=== PATIENT | female | born 1955 | race Caucasian/White ===

== ENCOUNTER 2023-05-01 14:11 | Outpatient (OUT) | payer MEDICARE, SELFPAY ==
[2023-05-01 14:52] LABS: Basophils Percent Auto 0.4 % (0.2-2.0); Eosinophils Absolute Auto 0.2 10^3/uL (0.0-0.7); Eosinophils Percent Auto 1.7 % (0.9-7.0); Hematocrit 41.4 % (36.0-48.0); Hemoglobin 13.1 g/dL (12.0-16.0); Immature Granulocytes Abs Auto 0.03 10^3/uL (0.00-0.03); Immature Granulocytes Pct Auto 0.3 % (0.0-0.5); Lymphocytes Absolute Auto 0.7 10^3/uL (1.2-3.8); Lymphocytes Percent Auto 6.4 % (20.5-60.0); Mean Corpuscular HGB Conc 31.6 g/dL (29.9-35.2); Mean Corpuscular Hemoglobin 28.9 pg (26.7-34.0); Mean Corpuscular Volume 91.2 fL (81.0-99.0); Mean Platelet Volume 10.2 fL (9.5-13.5); Monocytes Absolute Auto 0.8 10^3/uL (0.3-0.8); Monocytes Percent Auto 7.3 % (1.7-12.0); Neutrophils Absolute Auto 8.6 10^3/uL (1.4-6.5); Neutrophils Percent Auto 83.9 % (43.0-75.0); Platelet Count 254 10^3/uL (150-450); Red Blood Count 4.54 10^6/uL (4.20-5.40); Red Cell Distribution Width 12.3 % (11.0-15.0); White Blood Count 10.3 10^3/uL (4.0-11.0)
[2023-05-01 15:01] LABS: Estimated Average Glucose 148 mg/dL; Glycohemoglobin A1C 6.8 % (4.5-6.2)
[2023-05-01 15:11] LABS: Alanine Aminotransferase 31 U/L (14-59); Albumin Globulin Ratio 0.9; Albumin Level 3.8 g/dL (3.4-5.0); Alkaline Phosphatase 73 U/L (46-116); Anion Gap 13.3; Aspartate Amino Transferase 26 U/L (15-37); BUN Creatinine Ratio 19.4; Bilirubin Total 0.6 mg/dL (0.2-1.0); Calcium 9.3 mg/dL (8.5-10.1); Carbon Dioxide 29.8 mmol/L (21.0-32.0); Chloride 98 mmol/L (98-107); Chol HDL Ratio 3.1; Cholesterol 202 mg/dL (<=200); Estimated GFR (African America >60 (>=60); Estimated GFR (Non-African Ame 53 (>=60); Globulin 4.3 g/dL; Glucose 111 mg/dL (74-106); HDL Cholesterol 65 mg/dL (40-60); Potassium 4.1 mmol/L (3.5-5.1); Sodium 137 mmol/L (136-145); TSH W/ REFLEX FT4 0.828 uIU/mL (0.358-3.740); Total Protein 8.1 g/dL (6.4-8.2); Triglycerides 354 mg/dL (<=150); VLDL CHOLESTEROL 70.8 mg/dL
[2023-05-02 07:08] LABS: HCV Ab Non Reactive (Non Reactive)
== END 2023-05-01 14:12 | disposition home or self-care (01) ==
LOC: LAB 14:18
PROVIDERS: PCP Internal Medicine; Visit Provider Physician Assistant
DX: Z00.00 Encounter for general adult medical examination without abnormal findings (principal); I25.10 Atherosclerotic heart disease of native coronary artery without angina pectoris; I10 Essential (primary) hypertension; K29.71 Gastritis, unspecified, with bleeding; E11.9 Type 2 diabetes mellitus without complications; Z83.49 Family history of other endocrine, nutritional and metabolic diseases; Z72.89 Other problems related to lifestyle
CPT/HCPCS: 36415; 80053; 80061; 83036; 84443; 85025; 87522

== ENCOUNTER 2023-09-21 06:42 | Day surgery (SDC) | payer MEDICARE, SELFPAY ==
--- NOTE | 2023-09-20 | HP_ITS ---
PREOPERATIVE HISTORY AND PHYSICAL Date:? 09/20/2023 HISTORY:? Patient is a 68-year-old white female with complaints of declining vision from her left eye.? Her general onset of this has occurred over the last 1-2 years.? She states it has been constant in nature, gradually worsening over that time frame.? She has difficulty watching TV or working on the computer.? She also states having significant difficulty with road signs and headlights creating glare.? PAST OCULAR HISTORY:? Dry eyes. PAST SURGICAL HISTORY:? Denies. SOCIAL HISTORY:? Denies tobacco, alcohol or recreational drug abuse.? SYSTEMIC MEDICATIONS:? Include metoprolol, atorvastatin, lisinopril, hydrochlorothiazide, pantoprazole, ezetimibe, 81 mg aspirin, cetirizine. ALLERGIES:? Denies. REVIEW OF SYSTEMS:? No pertinent positives. PHYSICAL EXAM:? GENERAL:? In general, she is awake, alert and oriented x3, well developed, well nourished, in no acute distress.? HEART:? Regular rate and rhythm. LUNGS:? Clear bilaterally. ABDOMEN:? Soft, non-tender, non-distended. EXTREMITIES:? No pitting edema. OPHTHALMIC EXAM:? Revealed a visual acuity of 20/70 in the left and 20/30 in the right that glared to 20/200 in the right and 20/400 in the left.? Pupils motility, muscle balance, confrontational visual de la cruz within normal limits bilaterally.? Pressures were measured at 18 and 19, right and left eye respectively.? Slit lamp exam revealed blepharitis with a severe decrease in tear film bilaterally.? Conjunctiva, cornea, anterior chamber and iris were within normal limits bilaterally.? Lens status demonstrated 2+ nuclear sclerosis with 2+ cortical changes bilaterally.? FUNDUS EXAM:? Revealed a good view with good dilation bilaterally.? Optic discs, vessels, periphery and vitreous were within normal limits bilaterally.? Macula demonstrated < > changes and clumping bilaterally.? ASSESSMENT AND PLAN:? Visually significant cataract, left eye.? After risks, benefits, alternatives, as well as expectations were delivered to the patient, she elected to go forward with cataract removal.? She understands the risks include but not limited to infection, bleeding, loss of vision, loss of the eye itself.? Secondly, she understands postoperatively she is likely to require spectacle correction for best visual acuity.? Finally, a complete ophthalmic exam was performed, there is not determined to be any other source of visual decline other than that of the cataract.? After understanding all the risks as well as expectations, she elected to go forward with procedure as listed above and will be doing so in the near future. JOSE LUIS
--- NOTE | 2023-09-21 | OP_ITS ---
OPERATION DATE: 09/21/2023 SURGEON: Niko Ritchie M.D. PREOPERATIVE DIAGNOSIS: Nuclear sclerotic cataract left eye. POSTOPERATIVE DIAGNOSIS: Nuclear sclerotic cataract left eye. PROCEDURE: Cataract extraction with intraocular lens placement for the left eye. ANESTHESIA: Topical ESTIMATED BLOOD LOSS: Zero. COMPLICATIONS: None. PROCEDURE: In the preoperative holding area, topical proparacaine was placed on the surface of the patient?s eye, and the patient was sat up in an upright position. The 6 o?clock limbus was then marked with a marking pen for future reference for the Toric lens that would be placed into her eye. The patient was then brought to the Operating Room in supine position. After proper identification, the left eye was prepped and draped in a sterile ophthalmic fashion. A paracentesis was created at the 5 o'clock position. Approximately 1 cc of unpreserved Xylocaine was injected into the anterior chamber followed by Amvisc Plus. Using a 2.6 mm Keratome blade, a clear corneal incision was created at the 2 o'clock limbus. A cystotome was then used to begin a curvilinear capsulorrhexis that was continued for 360 degrees with the Utrata forceps. BSS on a 26 gauge cannula was injected beneath the anterior capsule to hydrodissect as well as hydrodelineate the lens. After ensuring mobility, phacoemulsification was performed in a [id number]-type fashion. After all nuclear material had been removed from the eye, IA was introduced and all residual cortical material was cleaned up. Additional Amvisc Plus was injected into the posterior bag to pressurize and inflate the anterior chamber. Referencing the 6 o?clock limbal dieudonne, the 99 degree axis was identified and marked with a [employer] Toric Marking System. A lens was then inserted into the anterior chamber and partially into the bag. This lens was then discovered to be the incorrect power and, therefore, removed from the eye. This took place with further inflating the anterior chamber with Amvisc Plus and grasping the lens with MST anterior chamber forceps through the paracentesis site, and MST IOL scissors the lens was then cut into thirds and removed through the temporal wound without difficulty. Further Amvisc Plus was injected into the anterior chamber, for once again adequate inflation, and a lens model SA6AT5, 30.0 diopters was then injected and dialed approximately 10 degrees shy of the 99 degree axis. IA was re-introduced into the anterior chamber, and all residual Amvisc Plus was removed from the eye. Utilizing the tip of the IA, the lens was rotated the final 10 degrees to the 99 degree axis. BSS on a 30 gauge cannula was injected into the stroma of both the clear corneal incision as well as the paracentesis to hydrate the wounds. Additional BSS was injected into the anterior chamber to pressurize the eye at approximately 20 to 22 mmHg by finger tension. 0.1 cc of antibiotic was injected into the anterior chamber and Weck- Ewelina sponges were used to check the wounds to be watertight. One drop of Apraclonidine and one drop of prednisolone acetate were placed into the eye and a shield was placed over top. The patient was then sent to the postoperative area in satisfactory condition to follow up the following day for postoperative care. JOSE LUIS
[2023-09-21] MEDS: DIAZEPAM 5 MG TABLET PO (07:07)
[2023-09-21] MEDS: TROPICAMIDE 1% OP SOL 300 DROP/15 ML BOTTLE OP ×4 (07:09→07:28)
[2023-09-21] MEDS: BESIFLOXACIN HCL 100 DROP DROPS.SUSP OP ×4 (07:10→07:29)
[2023-09-21] MEDS: PHENYLEPHRINE HCL 2.5% OP SOL 40 DROP/2 ML BOTTLE OP ×4 (07:11→07:27)
[2023-09-21] MEDS: CYCLOPENTOLATE HCL 1% OP SOL 40 DROP/2 ML BOTTLE OP ×4 (07:11→07:28)
[2023-09-21 07:14] VITALS: BP 141/85; PULSE 63; TEMP 36.1; O2SAT 97
[2023-09-21] MEDS: PROPARACAINE HCL 0.5% 300 DROP/15 ML BOTTLE OP (07:58)
[2023-09-21 08:08] VITALS: BP 150/79; PULSE 57; O2SAT 98
[2023-09-21 08:13] VITALS: BP 161/82; PULSE 58; O2SAT 98
[2023-09-21] MEDS: HYALURONATE SODIUM 16 MG/ML SYRINGE OP (08:14)
[2023-09-21] MEDS: LIDOCAINE 2% JELLY 10 ML TOPICAL (08:14)
[2023-09-21] MEDS: APRACLONIDINE HCL 0.5% SOL 100 DROP/5 ML BOTTLE OP (08:14)
[2023-09-21] MEDS: LIDOCAINE HCL 1% PF 20 MG/2 ML VIAL INJ (08:15)
[2023-09-21] MEDS: BETADINE POVIDONE-IODINE 5% OP SOL 30 ML BOTTLE OP (08:15)
[2023-09-21] MEDS: PHENYLEPHRINE/KETOROLAC 1-0.3% ML VIAL 4 ML IRR (08:15)
[2023-09-21] MEDS: PREDNISOLONE ACETATE OP 1% SUSP 100 DROPS/5 ML 1 DROP OP (08:15)
[2023-09-21] MEDS: TETRACAINE HCL 0.5% OP SOL 80 DROP/4 ML BOTTLE OP (08:16)
[2023-09-21] MEDS: CEFUROXIME SODIUM 750 MG, 0.9 % SODIUM CHLORIDE 16.3 ML OP (08:16)
[2023-09-21] MEDS: HYALURONATE SODIUM 16 MG/ML SYRINGE EYE-LEFT (08:25)
== END 2023-09-21 08:42 | disposition home or self-care (01) ==
LOC: SURGOUT 06:43
PROVIDERS: PCP Internal Medicine; Visit Provider Ophthalmology
PROC: (CPT 66984; principal; 2023-09-21 07:55)
DX: H25.12 Age-related nuclear cataract, left eye (principal)
CPT/HCPCS: 66984; J0697; V2630

== ENCOUNTER 2023-09-21 07:34 | Outpatient (OUT) | payer MEDICARE, SELFPAY | END 2023-09-21 07:35 | disposition home or self-care (01) | LOC: PST 07:34 | PROVIDERS: PCP Internal Medicine; Visit Provider Ophthalmology | DX: Z01.818 Encounter for other preprocedural examination (principal); H25.12 Age-related nuclear cataract, left eye ==

== ENCOUNTER 2023-10-19 06:55 | Day surgery (SDC) | payer MEDICARE, SELFPAY ==
--- NOTE | 2023-10-19 | HP_ITS ---
PREOPERATIVE HISTORY AND PHYSICAL ? Date:? 10/18/2023 ? HISTORY:? The patient is a 68-year-old white female with complaints of declining vision out of her right eye.? She states that gradually, over approximately one year?s time, she has noticed a constant decline in vision.? She describes it as moderate in severity.? She is having difficulty watching TV and doing computer work.? She also states having difficulty at night time with headlights creating glare and halos.? ? PAST OCULAR HISTORY / PAST MEDICAL HISTORY / SOCIAL HISTORY / MEDICATIONS / ALLERGIES TO MEDICATIONS / REVIEW OF SYSTEMS / PHYSICAL EXAM:? Unchanged from previously dictated. ? ASSESSMENT / PLAN:? Visually significant cataract right eye.? After risks, benefits, alternatives, as well as expectations were delivered to the patient, she elected to go forward with cataract removal.? She understands the risks include but not limited to infection, bleeding, loss of vision, loss of the eye itself.? Secondly, she understands that postoperatively she is likely to require spectacle correction for her best visual acuity.? Finally, a complete ophthalmic exam was performed.? There is not determined to be any other source of visual decline other than that of the cataract. ? After understanding all risks as well as expectations, she elected to go forward with the procedure as listed above and will be doing so in the near future. JOSE LUIS
--- NOTE | 2023-10-19 | OP_ITS ---
OPERATION DATE: 10/19/2023 SURGEON: Niko Ritchie M.D. PREOPERATIVE DIAGNOSIS: Nuclear sclerotic cataract right eye. POSTOPERATIVE DIAGNOSIS: Nuclear sclerotic cataract right eye. PROCEDURE NAME: Cataract extraction with intraocular lens placement for the right eye. ANESTHESIA: Topical. ESTIMATED BLOOD LOSS: Zero. COMPLICATIONS: None. PROCEDURE: In the preoperative holding area, topical proparacaine was placed on the surface of the patient?s eye and she was sat up in an upright position. The 6 o?clock limbus was marked with a marking pen for future reference for the Toric lens. Patient was brought to the Operating Room in supine position. After proper identification, the right eye was prepped and draped in a sterile ophthalmic fashion. A paracentesis was created at the 11 o'clock position. Approximately 1 cc of unpreserved Xylocaine was injected into the anterior chamber followed by Amvisc Plus. Using a 2.6 mm Keratome blade, a clear corneal incision was created at the 8 o'clock limbus. A cystotome was then used to begin a curvilinear capsulorrhexis that was continued for 360 degrees with the Utrata forceps. BSS on a 26 gauge cannula was injected beneath the anterior capsule to hydrodissect as well as hydrodelineate the lens. After ensuring mobility, phacoemulsification was performed in a [id number]-type fashion. After all nuclear material had been removed from the eye, IA was introduced and all residual cortical material was cleaned up. Additional Amvisc Plus was injected into the posterior bag to further pressurize and inflate it. Referencing the 6 o?clock limbal dieudonne, the 70 degree axis was discovered with the [employer] marking system. A lens model SA6AT5, 28.0 diopters was injected and dialed approximately 10 degrees shy of the 70 degree markings. IA was reintroduced into the anterior chamber and all residual Amvisc Plus was removed from the eye. Utilizing the tip of the IA, the lens was rotated the final 10 degrees to the 70 degree axis. BSS on a 30 gauge cannula was injected into the stroma of both the clear corneal incision as well as the paracentesis to hydrate the wounds. Additional BSS was injected into the anterior chamber to pressurize the eye at approximately 20 to 22 mmHg by finger tension. 0.1 cc of antibiotic was injected into the anterior chamber. Weck-Ewelina sponges were used to check the wounds to be watertight. One drop of Apraclonidine and one drop of prednisolone acetate were placed into the eye and a shield was placed over top. The patient was then sent to the postoperative area in satisfactory condition to follow up the following day for postoperative care. JOSE LUIS
--- OUTSIDE RECORDS SUMMARY | 2023-10-19 06:58 | XMS_ITS | CCD ---
Author Organization [facility] Care Team Providers Care Secretary Board Of Commissioners Name Role Phone None, No PCP Unavailable Unavailable Unavailable Unavailable Jeet Pretty Unavailable Unavailable Unavailable Grisel VIRK, Dr. Maverick Rosario Referring Unavailable Sukhwinder VIRK, Dr. Jeet Valero Primary Care [place] vailable Grisel VIRK, Dr. Maverick Rosario Attending Unavailable Grisel VIRK, Dr. Maverick Rosario Attending Unavailable Grisel VIRK, Dr. Maverick Rosario Referring Unavailable Grisel VIRK, Dr. Maverick Rosario Attending Unavailable Jeet Pretty MD Primary Care Provider MAVERICK ESPINOSA Attending Unavailable JEET PRETTY Primary Care Unavailable VERONICA SHERMAN Attending Unavailable JOE ADLER Attending Unavailable ANA WILL Referring Unavailable Medications Current Medications Medication Drug Class(es) Dates Sig (Normalized) Sig (Original) aspirin 81 mg delayed release oral tablet (5 sources) Platelet Aggregation Inhibitor, Nonsteroidal Anti-inflammatory Drug take 1 tablet by mouth once daily aspirin 81 mg EC tablet Take 1 tablet (81 mg) by mouth once daily. 0 Active atorvastatin 80 mg oral tablet (6 sources) HMG-CoA Reductase Inhibitor Start: 06-05-2023 End: 06-04-2024 take 1 tablet by mouth once daily at bedtime atorvastatin (Lipitor) 80 mg tablet Indications: Mixed hyperlipidemia Take 1 tablet (80 mg) by mouth once daily at bedtime. 90 tablet 3 06/05/2023 06/04/2024 Active calcium carbonate 1250 mg oral tablet (5 sources) take 1 tablet by mouth twice daily calcium carbonate (Oscal) 500 mg calcium (1,250 mg) tablet Take 1 tablet (1,250 mg) by mouth 2 times a day. 0 Active take 1 tablet by mouth twice ly Oyster Shell Calcium 500 MG Oral Tablet take 1 tablet by mouth 2 times daily Quantity: 0 Refills: 0 Ordered: 22-Oct-2021 DO Active cetirizine hydrochloride 10 mg oral tablet (1 source) Histamine-1 Receptor Antagonist take 1 tablet by mouth once daily cetirizine (ZyrTEC) 10 mg tablet Take 1 tablet (10 mg) by mouth once daily. 0 Active ezetimibe 10 mg oral tablet (5 sources) Dietary Cholesterol Absorption Inhibitor Start: 2021 End: 2024 take 1 tablet by mouth once daily ezetimibe (Zetia) 10 mg tablet Indications: Mixed hyperlipidemia Take 1 tablet (10 mg) by mouth once daily. 90 tablet 3 06/05/2023 06/04/2024 Active ferrous sulfate 324 mg delayed release oral tablet (5 sources) End: 2023 take 1 tablet by mouth once daily ferrous sulfate 324 mg (65 mg elemental iron) EC tablet (delayed release) Take 1 tablet (65 mg) by mouth once daily. 0 06/05/2023 Discontinued (Therapy completed) fexofenadine hydrochloride 180 mg oral tablet (5 sources) Histamine-1 Receptor Antagonist End: 2023 take 1 tablet by mouth once daily fexofenadine (Jessica) 180 mg tablet Take 1 tablet (180 mg) by mouth once daily. 0 06/05/2023 Discontinued (Discontinued by another clinician) hydroCHLOROthiazide 25 mg oral tablet (6 sources) Thiazide Diuretic Start: 2023 End: 2024 take 1 tablet by mouth once daily hydroCHLOROthiazide (HYDRODiuril) 25 mg tablet Indications: Coronary artery disease involving [place] coronary artery of [place] heart without angina pectoris , S/P CABG (coronary artery bypass graft) , Mixed hyperlipidemia , History of aortic valve replacement with bioprosthetic valve Take 1 tablet (25 mg) by mouth once daily. 90 tablet 3 06/05/2023 06/04/2024 Active lisinopril 20 mg oral tablet (6 sources) Angiotensin Converting Enzyme Inhibitor Start: 2023 End: 2024 take 1 tablet by mouth twice daily lisinopril 20 mg tablet Indications: Coronary artery disease involving [place] coronary artery of [place] heart without angina pectoris , S/P CABG (coronary artery bypass graft) , History of aortic valve replacement with bioprosthetic valve Take 1 tablet (20 mg) by mouth 2 times a day. 180 tablet 3 06/05/2023 06/04/2024 Active metoprolol tartrate 25 mg oral tablet (6 sources) beta-Adrenergic Reuben Start: 2023 End: 2024 take 1 tablet by mouth twice daily metoprolol tartrate (Lopressor) 25 mg tablet Indications: Coronary artery disease involving [place] coronary artery of [place] heart without angina pectoris , S/P CABG (coronary artery bypass graft) , History of aortic valve replacement with bioprosthetic valve Take 1 tablet (25 mg) by mouth 2 times a day. 180 tablet 3 06/05/2023 06/04/2024 Active pantoprazole 40 mg delayed release oral tablet (5 sources) Proton Pump Inhibitor take 1 tablet by mouth once daily pantoprazole (ProtoNix) 40 mg EC tablet Take 1 tablet (40 mg) by mouth once daily. 0 Active vitamin b12 1 mg oral tablet (5 sources) Vitamin B12 take 1 tablet by mouth once daily cyanocobalamin (Vitamin B-12) 1,000 mcg tablet Take 1 tablet (1,000 mcg) by mouth once daily. 0 Active Completed/Discontinued Medications Medication Drug Class(es) Dates Sig (Normalized) Sig (Original) amLODIPine 5 mg oral tablet (4 sources) Dihydropyridine Calcium Channel Reuben take 1 tablet by mouth once daily amLODIPine Besylate 5 MG Oral Tablet Take 1 tablet daily Quantity: 90 Refills: 0 Ordered: 29-Sep-2022 DO Active take 1 tablet by mouth once otilia y amLODIPine Besylate 10 MG Oral Tablet TAKE 1 TABLET DAILY. Quantity: 0 Refills: 0 Ordered: 22-Oct-2021 DO Active Problems Active Problems Problem Classification Problem Date Documented Date Episodic/Chronic Cardiac dysrhythmias (8 sources) Paroxysmal atrial fibrillation; Translations: [Atrial fibrillation] Onset: 04-26-2023 06-05-2023 Chronic Coronary atherosclerosis and other heart disease (8 sources) Coronary arteriosclerosis; Translations: [Coronary atherosclerosis of unspecified type of vessel, [place] or graft] Onset: 04-26-2023 06-05-2023 Chronic Coronary atherosclerosis and other heart disease (2 sources) Presence of aortocoronary bypass graft; Translations: [Presence of aortocoronary bypass graft] Onset: 04-26-2023 Episodic Disorders of lipid metabolism (7 sources) Hyperlipidemia; Translations: [Other and unspecified hyperlipidemia] Onset: 04-26-2023 06-05-2023 Chronic Gastritis and duodenitis (3 sources) Gastrointestinal hemorrhage; Translations: [Unspecified gastritis and gastroduodenitis, with hemorrhage] Onset: 04-26-2023 04-26-2023 Episodic Heart valve disorders (8 sources) History of aortic valve replacement; Translations: [Heart valve replaced by transplant] Onset: 04-26-2023 06-05-2023 Chronic Immunizations and screening for infectious disease (4 sources) Patient encounter status; Translations: [Other specified vaccination] Episodic Other nutritional; endocrine; and metabolic disorders (6 sources) Overweight in adulthood with body mass index of 25 or more but less than 30; Translations: [Overweight] Onset: 06-05-2023 06-05-2023 Episodic Other nutritional; endocrine; and metabolic disorders (2 sources) Body mass index (BMI) 28.0-28.9, adult; Translations: [Body mass index (BMI) 28.0-28.9, adult] Onset: 06-05-2023 Episodic Screening and history of mental health and substance abuse codes (4 sources) Ex-smoker; Translations: [Personal history of nicotine dependence] Onset: 06-05-2023 06-05-2023 Episodic Past or Other Problems Problem Classification Problem Date Documented Da te Episodic/Chronic Unclassified (1 source) Onset: 06-05-2023 06-05-2023 Results Test Name Value Interpretation Reference Range Facil ity Office Visit (Cardiology)on 09-29-2022 Follow-up visit Diagnoses/Problems Assessed S/P CABG (coronary artery bypass graft) (V45.81) (Z95.1) Paroxysmal atrial fibrillation (427.31) (I48.0) Hyperlipidemia (272.4) (E78.5) History of aortic valve replacement with bioprosthetic valve (V42.2) (Z95.3) Coronary disease (414.00) (I25.10) Gastrointestinal hemorrhage associated with gastritis, unspecified gastritis type (535.51) (K29.71) Overweight with body mass index (BMI) of 27 to 27.9 in adult (278.02,V85.23) (E66.3,Z68.27) Orders Overweight with body mass index (BMI) of 27 to 27.9 in adult Healthy Weight Tips; Status:Complete; Done: [id number] Some eating tips that can help you lose weight.; Status:Complete; Done: [id number] Patient Instructions Please bring all medicines, vitamins, and herbal supplements with you when you come to the office. Prescriptions will not be filled unless you are compliant with your follow up appointments or have a follow up appointment scheduled as per instruction of your physician. Refills should be requested at the time of your visit. Follow up in 9 months Chief Complaint ANTONETTE LINO is being seen for a 9 month follow-up of. History of Present Illness walks daily about a mile a day Patient returns in follow-up of problems as noted. She doing well. She has none of the symptoms of coronary disease that preceded her diagnosis and subsequent bypass surgery and because of this we believe she is doing well. Likewise she has no complaints of INTA valve disease. She has had some problems with gastrointestinal hemorrhage and this was discussed in great detail and it sounds as if she is being worked up. In regards to risk factor management it appears that her lipids are adequately managed. She has had no recurrent paroxysms of atrial fibrillation ever since her heart surgery and because of this we do not believe that chronic anticoagulant therapy is necessary particularly in light of the fact that she is presumed to possibly be having problems with gastrointestinal hemorrhage. As before we did advocate the merits of diet and weight loss as well as cardiac rehab and exercise. It sounds as if she is exercising daily this (see above) and as a consequence we applauded her efforts at fitness. Current Meds Medication NameInstruction amLODIPine Besylate 5 MG Oral TabletTake 1 tablet daily Aspirin EC 81 MG TBECTAKE 1 TABLET DAILY. Atorvastatin Calcium 80 MG Oral TabletTAKE 1 TABLET AT BEDTIME. Ezetimibe 10 MG Oral TabletTAKE 1 TABLET DAILY. Ferrous Sulfate 324 (65 Fe) MG Oral Tablet Delayed Release1 TAB DAILY Fexofenadine HCl - 180 MG Oral TabletTAKE 1 TABLET DAILY. hydroCHLOROthiazide 25 MG Oral TabletTAKE 1 TABLET DAILY. Lisinopril 20 MG Oral TabletTAKE 1 TABLET TWICE DAILY. Metoprolol Tartrate 25 MG Oral TabletTake one twice daily Oyster Shell Calcium 500 MG Oral Tablettake 1 tablet by mouth 2 times daily Pantoprazole Sodium 40 MG Oral Tablet Delayed ReleaseTAKE 1 TABLET DAILY. Vitamin B-12 1000 MCG Oral TabletTAKE 1 TABLET DAILY DIRECTED. Allergies Medication No Known Drug Allergies Recorded By: Ana Wilburn; 10/22/2021 2:05:30 PM Social History Problems Daily caffeine consumption, 1 serving a day coffee 1 daily Former smoker (V15.82) (Z87.891) quit 10- vape No illicit drug use Occasional alcohol use wine cooler Review of Systems Constitutional: not feeling tired. Eyes: no eyesight problems. ENT: no hearing loss and no nosebleeds. Cardiovascular: no intermittent leg claudication and as noted in HPI. Respiratory: no chronic cough and no shortness of breath. Gastrointestinal: no change in bowel habits and no blood in stools. Genitourinary: no urinary frequency. Skin: no skin rashes. Neurological: no seizures and no frequent falls. Psychiatric: no depression and not suicidal. All other systems have been reviewed and are negative for complaint. Vitals Vital Signs Printed in Appendix #1 below. Physical Exam Constitutional: alert and in no acute distress. Eyes: no erythema, swelling or discharge from the eye . Neck: neck is supple, symmetric, trachea midline, no masses and no thyromegaly . Pulmonary: no increased work of breathing or signs of respiratory distress and lungs clear to auscultation. Cardiovascular: carotid pulses 2+ bilaterally with no bruit , JVP was normal, no thrills , regular rhythm, normal S1 and S2, no murmurs , pedal pulses 2+ bilaterally and no edema . Abdomen: abdomen non-tender, no masses and no hepatomegaly . Skin: skin warm and dry, normal skin turgor . Psychiatric judgment and insight is normal and oriented to person, place and time . Signatures Electronically signed by : Maverick Espinosa MD; Sep 29 2022 5:42PM EST (Author) Appendix #1 Vital Signs Patient: ANTONETTE LINO; : 1955; Recorded: 29Sep2022 05:40PMRecorded: [id number] 10:06AMRecorded: [id number] 09:38AM Heart Rate72, R Mzzmzr51, L Radial Dsonaurh386, RUE, Kychdug545, GRAEME (more content not included)... Normal [place] Tobacco Screening.on 023 Adult depression screening assessment No [facility] [employer] 250 DO Work Phone: Fall risk assessment a) No falls within the last year [facility] Luis Carlos 250 DO Work Phone: Tobacco use status [facility]PH[facility] b) No [facility] Allison-Manda 250 DO Work Phone: Office Visit (Cardiology)on 10-22-2021 Follow-up visit Diagnoses/Problems Assessed Coronary disease (414.00) (I25.10) S/P CABG (coronary artery bypass graft) (V45.81) (Z95.1) History of aortic valve replacement with bioprosthetic valve (V42.2) (Z95.3) Paroxysmal atrial fibrillation (427.31) (I48.0) Overweight with body mass index (BMI) of 26 to 26.9 in adult (278.02,V85.22) (E66.3,Z68.26) Orders Coronary disease, S/P CABG (coronary artery bypass graft) Renew: Aspirin EC 81 MG Oral Tablet Delayed Release; TAKE 1 TABLET DAILY Renew: Atorvastatin Calcium 80 MG Oral Tablet; TAKE 1 TABLET AT BEDTIME Overweight with body mass index (BMI) of 26 to 26.9 in adult Healthy Weight Tips; Status:Complete - Retrospective Authorization; Done: [id number] Some eating tips that can help you lose weight.; Status:Complete - Retrospective Authorization; Done: [id number] Paroxysmal atrial fibrillation IO EKG Electrocardiogram- 12 Lead; Status:Complete; Done: [id number] Patient Instructions Please bring all medicines, vitamins, and herbal supplements with you when you come to the office. Prescriptions will not be filled unless you are compliant with your follow up appointments or have a follow up appointment scheduled as per instruction of your physician. Refills should be requested at the time of your visit. Follow up in 6-9 months Chief Complaint ANTONETTE LINO is being seen for an initial evaluation of. History of Present Illness Patient is seen in consultation at the request of her primary care physician. She is an individual who over the years knew that she had some aortic valve disease but it got worse while she was living in [place] taking care of her mother. Because of this she was evaluated and found to need surgical intervention for the valve. She is also found to have coronary disease and it sounds like she underwent single-vessel bypass surgery with a vein graft. Target uncertain. Around the time of surgery she developed paroxysmal atrial fibrillation but it resolved and its none recurrent. The patient denies any of the symptoms or proceed to her surgery. She also was very symptomatic with atrial fibrillation and she believes that if it were to happen again she had no it. Because of this we believe all is well. Her medical therapy is reviewed and felt to be adequate and appropriate because of this no changes are made. A modest diet was discussed as were the merits of modest weight loss. Surgical History Problems History of Complete colonoscopy History of Coronary artery bypass graft History of Hysterectomy History of Throat surgery Current Meds Medication NameInstruction amLODIPine Besylate 10 MG Oral TabletTAKE 1 TABLET DAILY. Aspirin EC 81 MG Oral Tablet Delayed ReleaseTAKE 1 TABLET DAILY. Atorvastatin Calcium 80 MG Oral TabletTAKE 1 TABLET AT BEDTIME. Ferrous Sulfate 324 (65 Fe) MG Oral Tablet Delayed Release1 TAB DAILY Fexofenadine HCl - 180 MG Oral TabletTAKE 1 TABLET DAILY. hydroCHLOROthiazide 25 MG Oral TabletTAKE 1 TABLET DAILY. Lisinopril 20 MG Oral TabletTAKE 1 TABLET TWICE DAILY. Metoprolol Tartrate 25 MG Oral Tablet1 1/2 TWICE DAILY 37.5 Oyster Shell Calcium 500 MG Oral Tablettake 1 tablet by mouth 2 times daily Pantoprazole Sodium 40 MG Oral Tablet Delayed ReleaseTAKE 1 TABLET DAILY. Vitamin B-12 1000 MCG Oral TabletTAKE 1 TABLET DAILY DIRECTED. Allergies Medication No Known Drug Allergies Recorded By: Ana Wilburn; 10/22/2021 2:05:30 PM Social History Problems Daily caffeine consumption, 1 serving a day coffee 1 daily Former smoker (V15.82) (Z87.891) quit - vape No illicit drug use Occasional alcohol use wine cooler Review of Systems Constitutional: not feeling tired. Eyes: no eyesight problems. ENT: no hearing loss and no nosebleeds. Cardiovascular: no intermittent leg claudication and as noted in HPI. Respiratory: no chronic cough and no shortness of breath. Gastrointestinal: no change in bowel habits and no blood in stools. Genitourinary: no urinary frequency. Skin: no skin rashes. Neurological: no seizures and no frequent falls. Psychiatric: no depression and not suicidal. All other systems have been reviewed and are negative for complaint. Vitals Vital Signs Printed in Appendix #1 below. EKG done in office today. Physical Exam Constitutional: alert and in no acute distress. Eyes: no erythema, swelling or discharge from the eye . Neck: neck is supple, symmetric, trachea midline, no masses and no thyromegaly . Pulmonary: no increased work of breathing or signs of respiratory distress and lungs clear to auscultation. Cardiovascular: carotid pulses 2+ bilaterally with no bruit , JVP was normal, no thrills , regular rhythm, normal S1 and S2, no murmurs , pedal pulses 2+ bilaterally and no edema . Abdomen: abdomen non-tender, no masses and no hepatomegaly . Skin: skin warm and dry, normal skin turgor . Psychiatric judgment and insight is normal and oriented to person, place and (more content not included)... Normal [place] Tobacco Screening.on 022 Adult depression screening assessment [facility] Work Phone: Fall risk assessment a) No falls within the last year [facility] [employer] 250 DO Work Phone: Tobacco use status [facility] b) [facility] 250 DO Work Phone: Vital Signs Date Time Vital Sign Value Performing Clinician Boris fan 06-05-2023 10:46-0400 Diastolic blood pressure 84 mm[Hg] Maverick Espinosa MD Work Phone: [facility] 06-05-2023 10:46-0400 Systolic blood pressure 130 mm[Hg] Maverick Espinosa MD Work Phone: [facility] 06-05-2023 10:14-0400 Body height 165.1 cm Maverick Espinosa MD Work Phone: [facility] 06-05-2023 10:14-0400 Body mass index (BMI) [Ratio] 28.02 kg/m2 Maverick Espinosa MD Work Phone: [facility] 06-05-2023 10:14-0400 Body weight 76.39 kg Maverick Espinosa MD Work Phone: [facility] 06-05-2023 10:14-0400 Heart rate 72 /min Maverick Espinosa MD Work Phone: [facility] 09-29-2022 17:40-0400 Body height 165.1 cm Jeet Pretty Work Phone: [facility] 250 DO Work Phone: 09-29-2022 17:40-0400 Body mass index (BMI) [Ratio] 27.46 kg/m2 Jeet Pretty Work Phone: [facility] 250 DO Work Phone: 09-29-2022 17:40-0400 Body surface area Derived from formula 1.82 m2 Jeet Pretty Work Phone: [facility] 250 DO Work Phone: 09-29-2022 17:40-0400 Body weight 74.84 kg Jeet Pretty Work Phone: [facility] 250 DO Work Phone: 09-29-2022 17:40-0400 Diastolic blood pressure 88 mm[Hg] Jeet Pretty Work Phone: [facility] 250 DO Work Phone: 09-29-2022 17:40-0400 Heart rate 72 /min Jeet Pretty Work Phone: [facility] 250 DO Work Phone: 09-29-2022 17:40-0400 Systolic blood pressure 138 mm[Hg] Jeet Pretty Work Phone: [facility] 250 DO Work Phone: 09-29-2022 10:06-0400 Diastolic blood pressure 78 mm[Hg] Jeet Pretty Work Phone: [facility] 250 DO Work Phone: 09-29-2022 10:06-0400 Diastolic blood pressure 84 mm[Hg] Jeet Petersen Pretty Work Phone: [facility] 250 DO Work Phone: 09-29-2022 10:06-0400 Systolic blood pressure 158 mm[Hg] Jeet Petersen Pretty Work Phone: [facility] 250 DO Work Phone: 09-29-2022 10:06-0400 Systolic blood pressure 152 mm[Hg] Jeet Petersen Pretty Work Phone: [facility] 250 DO Work Phone: 09-29-2022 09:38-0400 Body height 165.1 cm Jeet Petersen Pretty Work Phone: [facility] 250 DO Work Phone: 09-29-2022 09:38-0400 Body mass index (BMI) [Ratio] 27.46 kg/m2 Jeet Petersen Pretty Work Phone: [facility] 250 DO Work Phone: 09-29-2022 09:38-0400 Body surface area Derived from formula 1.82 m2 Jeet Petersen Pretty Work Phone: [facility] 250 DO Work Phone: 09-29-2022 09:38-0400 Body weight 74.84 kg Jeet Petersen Pretty Work Phone: [facility] 250 DO Work Phone: 09-29-2022 09:38-0400 Diastolic blood pressure 110 mm[Hg] Jeet Petersen Pretty Work Phone: [facility] 250 DO Work Phone: 09-29-2022 09:38-0400 Heart rate 78 /min Jeet Petersen Pretty Work Phone: [facility] 250 DO Work Phone: 09-29-2022 09:38-0400 Systolic blood pressure 160 mm[Hg] Jeet Pretty Work Phone: [facility] 250 DO Work Phone: 10-22-2021 14:44-0400 Diastolic blood pressure 82 mm[Hg] No PCP None [facility] 250 DO Work Phone: 10-22-2021 14:44-0400 Systolic blood pressure 126 mm[Hg] No PCP None [facility] 250 DO Work Phone: 10-22-2021 14:13-0400 Diastolic blood pressure 64 mm[Hg] No PCP None [facility] 250 DO Work Phone: 10-22-2021 14:13-0400 Systolic blood pressure 150 mm[Hg] No PCP None [facility] 250 DO Work Phone: 10-22-2021 14:12-0400 Body height 165.1 cm No PCP None [facility] 250 DO Work Phone: 10-22-2021 14:12-0400 Body mass index (BMI) [Ratio] 26.63 kg/m2 No PCP None [facility] 250 DO Work Phone: 10-22-2021 14:12-0400 Body surface area Derived from formula 1.8 m2 No PCP None [facility] 250 DO Work Phone: 10-22-2021 14:12-0400 Body weight 72.58 kg No PCP None [facility] 250 DO Work Phone: 10-22-2021 14:12-0400 Diastolic blood pressure 70 mm[Hg] No PCP None [facility] 250 DO Work Phone: 10-22-2021 14:12-0400 Heart rate 77 /min No PCP None [facility] 250 DO Work Phone: 10-22-2021 14:12-0400 Systolic blood pressure 146 mm[Hg] No PCP None [facility] 250 DO Work Phone: Encounters Encounter Date Encounter Type Care Provider Facility Start: 08-23-2023 End: 08-23-2023 ambulatory JOE ADLER Not Available Start: 06-05-2023 End: 06-05-[address] [facility] Start: 06-05-2023 End: 06-05-2023 Office outpatient visit 25 minutes Maverick Espinosa MD Work Phone: [facility] Comment on above: Coronary artery dise ase involving [place] coronary artery of [place] heart without angina pectoris (Primary Dx); S/P CABG (coronary artery bypass graft); Mixed hyperlipidemia; Paroxysmal atrial fibrillation (CMS/HCC); History of aortic valve replacement with bioprosthetic valve; BMI 28.0-28.9,adult; Former smoker Start: 05-01-2023 End: 05-01-2023 ambulatory VERONICA Love WHIT Not Available Start: 10-13-2022 Rx Renewal Jeet Pretty Work Phone: [facility] 250 DO Work Phone: Start: 09-29-2022 Office outpatient vi sit 25 minutes Jeet Pretty Work Phone: [facility] 250 DO Work Phone: Start: 09-29-[address] Maverick Espinosa II Facility: Start: 07-27-[address] Maverick Espinosa II Facility: Start: 11-05-2021 Telephone encounter No PCP None [facility] 600 DO Work Phone: Start: 10-22-2021 Office consultation new/estab patient 60 min No PCP None [facility] 250 DO Work Phone: Start: 10-22-[address] Maverick Espinosa II Facility: Procedures Date Procedure Procedure Detail Performing Clinician Start: 04-26-2023 History of coronary artery bypass grafting S/P CABG (coronary artery bypass graft) Maverick Espinosa MD Work Phone: Start: 04-18-2022 Mammography Maverick No MD Work Phone: Start: 12-21-2020 Colonoscopy Maverick No MD Work Phone: Coronary artery bypa ss graft No PCP None History of coronary artery bypass grafting S/P CABG (coronary artery bypass graft) No PCP None History of coronary artery bypass grafting S/P CABG (coronary artery bypass graft) Maverick Espinosa MD Work Phone: Hysterectomy No PCP None Surgical procedure No PCP No ne Total colonoscopy No PCP Non e Plan of Treatment Date Care Activity Detail Author Start: 12-21-2030 Screening for malignant neoplasm of colon [facility] Start: 06-04-2024 End: 06-04-2024 Patient encounter procedure 06/04/2024 1:00 PM EDT Office Visit [facility] [address] [facility] [address] [place] [address] Brea Bacon, POWER BENDER OPERATOR-COMPUTER GRAPHIC ARTIST [address] [facility] [address] [place] [address] [facility] Start: 07-04-2023 FUV, Provider: Maverick Espinosa, Status: Jimmy, Time: 11:00 AM FUV, Provider: Maverick Espinosa, Status: Jimmy, Time: 11:00 AM [facility] 250 DO Work Phone: Start: 04-18-2023 Screening for malignant neoplasm of breast Mammogram [facility] Start: 11-11-2022 COVID-19 Vaccine ( season) COVID-19 Vaccine ( season) [facility] Start: 11-11-2022 Influenza vaccination Influenza Vaccine (#1) [facility] Start: 07-27-2022 FUV, Provider: Maverick Espinosa, Status: Pen, Time: 2:20 PM FUV, Provider: Maverick Espinosa, Status: Pen, Time: 2:20 PM [facility] 250 DO Work Phone: Start: 08-02-2005 Zoster Vaccines (1 of 2) Zoster Vaccines (1 of 2) [facility] Start: 08-02-1977 DTaP/Tdap/Td Vaccines (1 - Tdap) DTaP/Tdap/Td Vaccines (1 - Tdap) [facility] Start: 08-02-1973 Diabetes mellitus screening Diabetes Screening [facility] Start: 08-02-1973 Hepatitis C screening Hepatitis C Screening [facility] Start: 08-02-1961 Pneumococcal Vaccine: 65+ Years (1 - PCV) Pneumococcal Vaccine: 65+ Years (1 - PCV) [facility] Start: 1955 Lipid panel Lipid Panel [facility] Start: 1955 Medicare Annual Wellness Visit Medicare Annual Wellness Visit (AWV) [facility] Start: 1955 Screening for malignant neoplasm of colon [facility] Immunizations Immunization Date Immunization Notes Care Provider Fa cili 12-15-2021 influenza, seasonal, injectable Jeet Pretty Work Phone: [facility] 250 DO Work Phone: 12-15-2021 Pfizer COVID-19 Vac Bivalent 30 MCG/0.3ML Intramuscular Suspension Jeet Pretty Work Phone: [facility] 250 DO Work Phone: 12-15-2021 influenza virus vaccine, unspecified formulation Maverick Espinosa MD Work Phone: [facility] Work Phone: 03-09-2021 Moderna COVID-19 Vaccine 100 MCG/0.5ML Intramuscular Suspension No PCP None [facility] 250 DO Work Phone: Comment on above: Series: 08-16-2020 Moderna COVID-19 Vaccine 100 MCG/0.5ML Intramuscular Suspension No PCP None [facility] 250 DO Work Phone: Comment on above: Series: 05-18-2020 Moderna COVID-19 Vaccine 100 MCG/0.5ML Intramuscular Suspension [facility] Work Phone: Comment on above: Series: 12-21-2012 influenza, seasonal, injectable No PCP None [facility] 250 DO Work Phone: Payers Date Payer Category Payer Medicare ANTHEM MEDICARE [facility] MEDICARE ADVANTAGE [id number] 2022-Present [address] [place] [address] [id number] 2022 Unknown [id number] 1955 Unknown [id number] 1955 Unknown [id number] 1955 Unknown [id number] 1955 Unknown [id number] 1955 Unknown [id number] 1955 Unknown [id number] 9 Medicare [id number] Unknown Social History Date Type Detail Facility Start: 06-05-2023 Occasional alcohol use [facility]as[facility] Work Phone: Comment on above: wine cooler; quit 10- vape; coffee 1 daily; Start: 06-05-2023 [facility] History of tobacco use Current smoker [facility] Work Phone: History of tobacco use Cigarette Smoker [facility] Work Phone: Start: 06-05-2023 Tobacco use and exposure Smokeless tobacco non-user [facility] Work Phone: Start: 06-05-2023 Alcohol intake Current drinke r of alcohol (finding) [facility] Work Phone: Start: 06-05-2023 Tobacco use panel [facility] Work Phone: Start: 04-26-2023 Alcohol Comment occasional [facility] Work Phone: Start: 1955 Sex Assigned At Not on file [facility] Work Phone: Start: 05-26-2023 End: 06-05-2023 Exposure to SARS-CoV-2 (event) Not sure [facility] History of Present illness Narrative 06-05-2023 Maverick Espinosa MD - 06/05/2023 10:10 AM EDT Note Date & Type Note Facility 06-05-2023 History of Present illness Narrative Subjective Antonette Lino is a 67 y.o. female Chief Complaint Follow-up HPI Patient returns in follow-up of problems as noted. She is done well. I cannot elicit from her any angina CHF or arrhythmia symptomatology. She has none of the symptoms that presented her original diagnosis of coronary disease and subsequent surgical intervention. Likewise her aortic valve disease is now asymptomatic following bioprosthetic aortic valve replacement. She was congratulated on her smoking cessation. Risk factors including her lipids and blood pressure. We adequately controlled and because of all the above we suggest no changes in therapy. We did advocate a modest diet and weight loss but otherwise feels she is doing well. Review of Systems All other systems reviewed and are negative. Vitals: 06/05/23 1014 06/05/23 1046 BP: 130/90 130/84 BP Location: Left arm Right arm Patient Position: Sitting Sitting Pulse: 72 Weight: 76.4 kg (168 lb 6.4 oz) Height: 1.651 m (5' 5 ) Objective Physical Exam Constitutional: Appearance: Normal appearance. HENT: Nose: Nose normal. Neck: Vascular: No carotid bruit. Cardiovascular: Rate and Rhythm: Normal rate. Pulses: Normal pulses. Heart sounds: Normal heart sounds. Pulmonary: Effort: Pulmonary effort is normal. Abdominal: General: Bowel sounds are normal. Palpations: Abdomen is soft. Musculoskeletal: General: Normal range of motion. Cervical back: Normal range of motion. Right lower leg: No edema. Left lower leg: No edema. Skin: General: Skin is warm and dry. Neurological: General: No focal deficit present. Mental Status: She is alert. Psychiatric: Mood and Affect: Mood normal. Behavior: Behavior normal. Thought Content: Thought content normal. Judgment: Judgment normal. Allergies Patient has no known allergies. Current Medications Current Outpatient Medications: aspirin 81 mg EC tablet, Take 1 tablet (81 mg) by mouth once daily., Disp: , Rfl: atorvastatin (Lipitor) 80 mg tablet, Take 1 tablet (80 mg) by mouth once daily at bedtime., Disp: , Rfl: calcium carbonate (Oscal) 500 mg calcium (1,250 mg) tablet, Take 1 tablet (1,250 mg) by mouth 2 times a day., Disp: , Rfl: cetirizine (ZyrTEC) 10 mg tablet, Take 1 tablet (10 mg) by mouth once daily., Disp: , Rfl: cyanocobalamin (Vitamin B-12) 1,000 mcg tablet, Take 1 tablet (1,000 mcg) by mouth once daily., Disp: , Rfl: ezetimibe (Zetia) 10 mg tablet, Take 1 tablet (10 mg) by mouth once daily., Disp: , Rfl: hydroCHLOROthiazide (HYDRODiuril) 25 mg tablet, Take 1 tablet (25 mg) by mouth once daily., Disp: , Rfl: lisinopril 20 mg tablet, Take 1 tablet (20 mg) by mouth 2 times a day., Disp: , Rfl: metoprolol tartrate (Lopressor) 25 mg tablet, Take 1 tablet (25 mg) by mouth 2 times a day., Disp: , Rfl: pantoprazole (ProtoNix) 40 mg EC tablet, Take 1 tablet (40 mg) by mouth once daily., Disp: , Rfl: Assessment/Plan 1. Coronary artery disease involving [place] coronary artery of [place] heart without angina pectoris 2. S/P CABG (coronary artery bypass graft) 3. Mixed hyperlipidemia 4. Paroxysmal atrial fibrillation (CMS/HCC) 5. History of aortic valve replacement with bioprosthetic valve 6. BMI 28.0-28.9,adult 7. Former smoker Scribe Attestation By signing my name below, IBruna Maricarmen BOWENSibkeny attest that this documentation has been prepared under the direction and in the presence of Maverick Espinosa MD. Provider Attestation - Scribe documentation All medical record entries made by the Scribe were at my direction and personally dictated by me. I have reviewed the chart and agree that the record accurately reflects my personal performance of the history, physical exam, discussion and plan. documented in this encounter [facility] Work Phone: Instructions 06-05-2023 Patient Instructions Note Date & Type Note Facility 06-05-2023 Instructions Diogenes Brown MA - 06/05/2023 10:10 AM EDT Please bring all medicines, vitamins, and herbal supplements with you when you come to the office. Prescriptions will not be filled unless you are compliant with your follow up appointments or have a follow up appointment scheduled as per instruction of your physician. Refills should be requested at the time of your visit. documented in this encounter [facility] Work Phone: Chief complaint Narrative - Reported Note Date & Type Note Facility Chief complaint Narrative - Reported ANTONETTE LINO is being seen for an initial evaluation of. [facility] 250 DO Work Phone: Evaluation note Note Date & Type Note Facility Evaluation note Diagnosis Coronary artery disease involving [place] coronary artery of [place] heart without angina pectoris- Primary S/P CABG (coronary artery bypass graft) Postsurgical aortocoronary bypass status Mixed hyperlipidemia Paroxysmal atrial fibrillation (CMS/HCC) Atrial fibrillation History of aortic valve replacement with bioprosthetic valve BMI 28.0-28.9,adult Former smoker Personal history of tobacco use, presenting hazards to health documented in this encounter [facility] Work Phone: History of Present illness Narrative Note Date & Type Note Facility History of Present illness Narrative Patient is seen in consultation at the request of her primary care physician. She is an individual who over the years knew that she had some aortic valve disease but it got worse while she was living in [place] taking care of her mother. Because of this she was evaluated and found to need surgical intervention for the valve. She is also found to have coronary disease and it sounds like she underwent single-vessel bypass surgery with a vein graft. Target uncertain. Around the time of surgery she developed paroxysmal atrial fibrillation but it resolved and its none recurrent.The patient denies any of the symptoms or proceed to her surgery. She also was very symptomatic with atrial fibrillation and she believes that if it were to happen again she had no it. Because of this we believe all is well. Her medical therapy is reviewed and felt to be adequate and appropriate because of this no changes are made. A modest diet was discussed as were the merits of modest weight loss. -[facility] [employer] Work Phone: History of Present illness Narrative Note Date & Type Note Facility History of Present illness Narrative walks daily about a mile a dayPatient returns in follow-up of problems as noted. She doing well. She has none of the symptoms of coronary disease that preceded her diagnosis and subsequent bypass surgery and because of this we believe she is doing well. Likewise she has no complaints of INTA valve disease. She has had some problems with gastrointestinal hemorrhage and this was discussed in great detail and it sounds as if she is being worked up.In regards to risk factor management it appears that her lipids are adequately managed. She has had no recurrent paroxysms of atrial fibrillation ever since her heart surgery and because of this we do not believe that chronic anticoagulant therapy is necessary particularly in light of the fact that she is presumed to possibly be having problems with gastrointestinal hemorrhage. As before we did advocate the merits of diet and weight loss as well as cardiac rehab and exercise. It sounds as if she is exercising daily this (see above) and as a consequence we applauded her efforts at fitness. [facility] [employer] DO Work Phone: Reason for referral (narrative) Consultation (Routine) - Authorized Note Date & Type Note Facility Reason for referral (narrati ve) Specialty Diagnoses / Procedures Referred By Marina t Referred To Contact Cardiology Diagnoses Coronary artery disease involving [place] coronary artery of [place] heart without angina pectoris Paroxysmal atrial fibrillation (CMS/HCC) Procedures Follow Up In Cardiology Maverick Espinosa MD [address] [facility] [address] [address] Brea Bacon, POWER BENDER OPERATOR-COMPUTER GRAPHIC ARTIST [address] [facility] [address] [place] [address] Referral ID Status Reason Start Date Expiration Date V isits Requested Visits Authorized [id number] Authorized 06/05/2023 06/04/2024 1 1 [facility] Work Phone: Family History No Family History Records FoundUnknown Family Member Name Dates Details Other congestive heart failu re: Mother Status:Active Family history of heart murm ur: Sister(V17.49, Z82.49) Status:Active Unknown Family Member Name Dates Details Other congestive heart failu re: Mother Status:Active Family history of heart murm ur: Sister(V17.49, Z82.49) Status:Active Unknown Family Member Name Dates Details Other congestive heart failu re: Mother Status:Active Family history of heart murm ur: Sister(V17.49, Z82.49) Status:Active Unknown Family Member Name Dates Details Other congestive heart failu re: Mother Status:Active Family history of heart murm ur: Sister(V17.49, Z82.49) Status:Active Chief Complaint ANTONETTE LINO is being seen for a 9 month follow-up of. Summary Purpose Advance Directives No Advanced Directives Records FoundNo Advanced Directives Records FoundNo Advanced Directives Records FoundNo Advanced Directives Records Found Additional Source Comments INFORMATION SOURCE (unrecogn ized section and content) DATE CREATED AUTHOR 09/30/2022 [facility] DATE CREATED AUTHOR AUTHOR'S ORGANIZ ATION 09/30/2022 [place] DATE CREATED AUTHOR AUTHOR'S ORGANIZ ATION 06/05/2023 [facility] DATE CREATED AUTHOR AUTHOR'S ORGANIZ ATION 08/24/2023 [facility] [employer] Reason for Visit (unrecogniz ed section and content) Reason Comments Follow-up 9m Care Teams (unrecognized sec tion and content) [employer] Relationship Specialty Start Date End Date Jeet Pretty MD [address] [facility] [address] [place] [address] PCP - General 09/29/22 FOR RECORDS PERTAINING TO PATIENTS WHO ARE OR HAVE BEEN ENROLLED IN A CHEMICAL DEPENDENCY/SUBSTANCEABUSE PROGRAM, SOME INFORMATION MAY BE OMITTED. This clinical summary was aggregated from multiple sources. Caution should be exercised in using it in the provision of clinical care. This summary normalizes information from multiple sources, and as a consequence, information in this document may materially change the coding, format and clinical context of patient data. In addition, data may be omitted in some cases. CLINICAL DECISIONS SHOULD BE BASED ON THE PRIMARY CLINICAL RECORDS. [facility] provides no warranty or guarantee of the accuracy or completeness of information in this document.
[2023-10-19 07:06] VITALS: BP 142/81; PULSE 63; TEMP 35.8; O2SAT 99
[2023-10-19] MEDS: TROPICAMIDE 1% OP SOL 300 DROP/15 ML BOTTLE OP ×4 (07:10→07:31)
[2023-10-19] MEDS: CYCLOPENTOLATE HCL 1% OP SOL 40 DROP/2 ML BOTTLE OP ×4 (07:11→07:30)
[2023-10-19] MEDS: PHENYLEPHRINE HCL 2.5% OP SOL 40 DROP/2 ML BOTTLE OP ×4 (07:11→07:29)
[2023-10-19] MEDS: BESIFLOXACIN HCL 100 DROP DROPS.SUSP OP ×4 (07:12→07:30)
[2023-10-19] MEDS: DIAZEPAM 5 MG TABLET PO (07:15)
[2023-10-19] MEDS: HYALURONATE SODIUM 16 MG/ML SYRINGE OP (08:08)
[2023-10-19] MEDS: APRACLONIDINE HCL 0.5% SOL 100 DROP/5 ML BOTTLE OP (08:08)
[2023-10-19] MEDS: LIDOCAINE 2% JELLY 10 ML TOPICAL (08:09)
[2023-10-19] MEDS: PHENYLEPHRINE/KETOROLAC 1-0.3% ML VIAL 4 ML IRR (08:09)
[2023-10-19] MEDS: LIDOCAINE HCL 1% PF 20 MG/2 ML VIAL INJ (08:09)
[2023-10-19] MEDS: BETADINE POVIDONE-IODINE 5% OP SOL 30 ML BOTTLE OP (08:09)
[2023-10-19] MEDS: PREDNISOLONE ACETATE OP 1% SUSP 100 DROPS/5 ML 1 DROP OP (08:10)
[2023-10-19] MEDS: CEFUROXIME SODIUM 750 MG, 0.9 % SODIUM CHLORIDE 16.3 ML OP (08:10)
[2023-10-19] MEDS: TETRACAINE HCL 0.5% OP SOL 80 DROP/4 ML BOTTLE OP (08:10)
[2023-10-19] MEDS: PROPARACAINE HCL 0.5% 300 DROP/15 ML BOTTLE OP (08:10)
[2023-10-19 08:11] VITALS: BP 154/81; BP 163/84; PULSE 56; PULSE 58; O2SAT 100
== END 2023-10-19 08:35 | disposition home or self-care (01) ==
LOC: SURGOUT 06:56
PROVIDERS: PCP Internal Medicine; Visit Provider Ophthalmology
PROC: (CPT 66984; principal; 2023-10-19 08:00)
DX: H25.11 Age-related nuclear cataract, right eye (principal)
CPT/HCPCS: 66984; J0697; V2630

== ENCOUNTER 2023-10-19 07:59 | Outpatient (OUT) | payer MEDICARE, SELFPAY ==
--- OUTSIDE RECORDS SUMMARY | 2023-10-19 08:03 | XMS_ITS | CCD ---
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 pectoris , S/P CABG [...] mg tablet Indications: Coronary artery disease involving bad river band 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 Normal [place] Tobacco Screening.on 023 Adult depression screening assessment No [facility] RIGID-Manda 250 DO Work Phone: Fall risk assessment a) No falls within the last year [facility] Luis Carlos 250 DO Work Phone: Tobacco use status [facility]PHS b) No [facility] Allison-Manda 250 DO Work Phone: Office Visit [...] Weight Tips; Status:Complete - Retrospective Authorization; Done: [id number] Some eating tips that can help you lose weight.; Status:Complete - Retrospective Authorization; Done: [id number] Paroxysmal atrial fibrillation IO EKG Electrocardiogram- 12 Lead; Status:Complete; Done: [id number] Patient Instructions Please bring all medicines, vitamins, [...] got worse while she was living in [place] taking care of her mother. Because of [...] Screening.on 022 Adult depression screening assessment No [facility] [email or web address] 250 DO Work Phone: Fall risk assessment a) No falls within the last year [facility] 250 DO Work Phone: Tobacco use status CPHS b) No [facility] 250 DO Work Phone: Vital Signs Date Time Vital Sign Value Performing Clinician Boris fan 06-05-2023 10:46-0400 Diastolic blood pressure 84 mm[Hg] Maverick Espinosa MD Work Phone: [facility] 06-05-2023 10:46-0400 Systolic blood pressure 130 mm[Hg] Maverick Espinosa MD Work Phone: [facility] 06-05-2023 10:14-0400 Body height 165.1 cm Maverick Espinosa MD Work Phone: [facility] 06-05-2023 10:14-0400 Body mass index (BMI) [Ratio] 28.02 kg/m2 Maverick Espinosa MD Work Phone: [facility] 06-05-2023 10:14-0400 Body weight 76.39 kg Maverick Espinosa MD Work Phone: [facility] 06-05-2023 10:14-0400 Heart rate 72 /min Maverick Espinosa MD Work Phone: [facility] 09-29-2022 17:40-0400 Body height 165.1 cm Jeet Pretty Work Phone: [facility] 250 DO Work Phone: 09-29-2022 17:40-0400 Body mass index (BMI) [Ratio] 27.46 kg/m2 Jeet Pretty Work Phone: [facility] 250 DO Work Phone: 09-29-2022 17:40-0400 Body surface area Derived from formula 1.82 m2 Jeet Pretty Work Phone: [facility] 250 DO Work Phone: 09-29-2022 17:40-0400 Body weight 74.84 kg Jeet Pretty Work Phone: [facility] 250 DO Work Phone: 09-29-2022 17:40-0400 Diastolic blood pressure 88 mm[Hg] Jeet Pretty Work Phone: [facility] 250 DO Work Phone: 09-29-2022 17:40-0400 Heart rate 72 /min Jeet Pretty Work Phone: [facility] 250 DO Work Phone: 09-29-2022 17:40-0400 Systolic blood pressure 138 mm[Hg] Jeet Pretty Work Phone: [facility] 250 DO Work Phone: 09-29-2022 10:06-0400 Diastolic blood pressure 78 mm[Hg] Jeet Pretty Work Phone: [facility] 250 DO Work Phone: 09-29-2022 10:06-0400 Diastolic blood pressure 84 mm[Hg] Jeet Petersen Pretty Work Phone: [facility] 250 DO Work Phone: 09-29-2022 10:06-0400 Systolic blood pressure 158 mm[Hg] Jeet Petersen Pretty Work Phone: [facility] 250 DO Work Phone: 09-29-2022 10:06-0400 Systolic blood pressure 152 mm[Hg] Jeet Petersen Pretty Work Phone: [facility] 250 DO Work Phone: 09-29-2022 09:38-0400 Body height 165.1 cm Jeet Petersen Pretty Work Phone: [facility] 250 DO Work Phone: 09-29-2022 09:38-0400 Body mass index (BMI) [Ratio] 27.46 kg/m2 Jeet Petersen Pretty Work Phone: [facility] 250 DO Work Phone: 09-29-2022 09:38-0400 Body surface area Derived from formula 1.82 m2 Jeet Petersen Pretty Work Phone: [facility] 250 DO Work Phone: 09-29-2022 09:38-0400 Body weight 74.84 kg Jeet Petersen Pretty Work Phone: [facility] 250 DO Work Phone: 09-29-2022 09:38-0400 Diastolic blood pressure 110 mm[Hg] Jeet Petersen Pretty Work Phone: [facility] 250 DO Work Phone: 09-29-2022 09:38-0400 Heart rate 78 /min Jeet Petersen Pretty Work Phone: [facility] 250 DO Work Phone: 09-29-2022 09:38-0400 Systolic blood pressure 160 mm[Hg] Jeet Pretty Work Phone: [facility] 250 DO Work Phone: 10-22-2021 14:44-0400 Diastolic blood pressure 82 mm[Hg] No PCP None [facility] 250 DO Work Phone: 10-22-2021 14:44-0400 Systolic blood pressure 126 mm[Hg] No PCP None [facility] 250 DO Work Phone: 10-22-2021 14:13-0400 Diastolic blood pressure 64 mm[Hg] No PCP None [facility] 250 DO Work Phone: 10-22-2021 14:13-0400 Systolic blood pressure 150 mm[Hg] No PCP None [facility] 250 DO Work Phone: 10-22-2021 14:12-0400 Body height 165.1 cm No PCP None [facility] 250 DO Work Phone: 10-22-2021 14:12-0400 Body mass index (BMI) [Ratio] 26.63 kg/m2 No PCP None [facility] 250 DO Work Phone: 10-22-2021 14:12-0400 Body surface area Derived from formula 1.8 m2 No PCP None [facility] 250 DO Work Phone: 10-22-2021 14:12-0400 Body weight 72.58 kg No PCP None [facility] 250 DO Work Phone: 10-22-2021 14:12-0400 Diastolic blood pressure 70 mm[Hg] No PCP None [facility] 250 DO Work Phone: 10-22-2021 14:12-0400 Heart rate 77 /min No PCP None [facility] 250 DO Work Phone: 10-22-2021 14:12-0400 Systolic blood pressure 146 mm[Hg] No PCP None [facility] 250 DO Work Phone: Encounters Encounter Date Encounter Type Care Provider Facility Start: 08-23-2023 End: 08-23-2023 ambulatory JOE ADLER Not Available Start: 06-05-2023 End: 06-05-2023 ambulatory MAVERICK ESPINOSA [facility] Ambulatory Start: 06-05-2023 End: 06-05-2023 Office outpatient visit 25 minutes Maverick Espinosa MD Work Phone: [facility] Comment on above: Coronary artery dise ase involving bad river band coronary artery of bad river band heart without angina pectoris (Primary Dx); S/P CABG (coronary artery bypass graft); Mixed hyperlipidemia; Paroxysmal atrial fibrillation (CMS/HCC); History of aortic valve replacement with bioprosthetic valve; BMI 28.0-28.9,adult; Former smoker Start: 05-01-2023 End: 05-01-2023 ambulatory VERONICA Love WHIT Not Available Start: 10-13-2022 Rx Renewal Jeet Pretty Work Phone: [facility] 250 DO Work Phone: Start: 09-29-2022 Office outpatient vi sit 25 minutes Jeet Pretty Work Phone: [facility] 250 DO Work Phone: Start: 09-29-[address] Maverick Espinosa II Facility: Start: 07-27-[address] Maverick Espinosa II Facility: Start: 11-05-2021 Telephone encounter No PCP None [facility] 600 DO Work Phone: Start: 10-22-2021 Office consultation new/estab patient 60 min No PCP None [facility] 250 DO Work Phone: Start: 10-22-2021 ambulatory [...] 12-21-2030 Screening for malignant neoplasm of colon [facility] Start: 06-04-2024 End: 06-04-2024 Patient encounter procedure 06/04/2024 1:00 PM EDT Office Visit [facility] [address] [facility] [address] [place] [address] Brea Bacon, [employer] PRODUCTION MANAGER-DIRECTOR DENTAL SERVICES [address] [facility] [address] [place] [address] [facility] Start: 07-04-2023 FUV, Provider: Mvaerick Espinosa, Status: Jimmy, Time: 11:00 AM FUV, Provider: Maverick Espinosa, Status: Jimmy, Time: 11:00 AM [facility] 250 DO Work Phone: Start: 04-18-2023 Screening for malignant neoplasm of breast Mammogram [facility] Start: 11-11-2022 COVID-19 Vaccine ( season) COVID-19 Vaccine ( season) [facility] Start: 11-11-2022 Influenza vaccination Influenza Vaccine (#1) [facility] Start: 07-27-2022 FUV, Provider: Maverick Espinosa, Status: Pen, Time: 2:20 PM FUV, Provider: Maverick Espinosa, Status: Pen, Time: 2:20 PM [facility] Work Phone: Start: 08-02-2005 Zoster Vaccines (1 of 2) Zoster Vaccines (1 of 2) [facility] Start: 08-02-1977 DTaP/Tdap/Td Vaccines (1 - Tdap) DTaP/Tdap/Td Vaccines (1 - Tdap) [facility] Start: 08-02-1973 Diabetes mellitus screening Diabetes Screening [facility] Start: 08-02-1973 Hepatitis C screening Hepatitis C Screening [facility] Start: 08-02-1961 Pneumococcal Vaccine: 65+ Years (1 - PCV) Pneumococcal Vaccine: 65+ Years (1 - PCV) [facility] Start: 1955 Lipid panel Lipid Panel [facility] Start: 1955 Medicare Annual Wellness Visit Medicare Annual Wellness Visit (AWV) [facility] Start: 1955 Screening for malignant neoplasm of colon [facility] Immunizations Immunization Date Immunization Notes Care Provider Fa cili 12-15-2021 influenza, seasonal, injectable Jeet Pretty [facility] Phone: [facility] 250 DO Work Phone: 12-15-2021 Pfizer COVID-19 Vac Bivalent 30 MCG/0.3ML Intramuscular Suspension Jeet Pretty Work Phone: [facility] 250 DO Work Phone: 12-15-2021 influenza virus vaccine, unspecified formulation Maverick Espinosa MD Work Phone: [facility] Work Phone: 03-09-2021 Moderna COVID-19 Vaccine 100 MCG/0.5ML Intramuscular Suspension No PCP None [facility] 250 DO Work Phone: Comment on above: Series: 08-16-2020 Moderna COVID-19 Vaccine 100 MCG/0.5ML Intramuscular Suspension No PCP None [facility] 250 DO Work Phone: Comment on above: Series: 05-18-2020 Moderna COVID-19 Vaccine 100 MCG/0.5ML Intramuscular Suspension No [facility]CP [facility] Work Phone: Comment on above: Series: 12-21-2012 influenza, seasonal, injectable No PCP None [facility] 250 DO Work Phone: Payers Date Payer Category Payer Medicare [employer]M MEDICARE [facility] MEDICARE ADVANTAGE [id number] 2022-Present [address] [place] [address] [id number] 2022 Unknown [id number] 1955 Unknown [id number] 1955 Unknown [id number] 1955 Unknown [id number] 1955 Unknown [id number] 1955 Unknown [id number] 1955 Unknown [id number] 9 Medicare [id number] Unknown Social History Date Type Detail Facility Start: 06-05-2023 Occasional alcohol use Occasional al cohol use [facility] Work Phone: Comment on above: wine cooler; quit 10- vape; coffee 1 daily; Start: 06-05-2023 [facility] History of tobacco use Current smoker [facility] Work Phone: History of tobacco use Cigarette Smoker [facility] Work Phone: Start: 06-05-2023 Tobacco use and exposure Smokeless tobacco non-user [facility] Work Phone: Start: 06-05-2023 Alcohol intake Current drinke r of alcohol (finding) [facility] Work Phone: Start: 06-05-2023 Tobacco use panel [facility] Work Phone: Start: 04-26-2023 Alcohol Comment occasional [facility] Work Phone: Start: 1955 Sex Assigned At Not on file [facility] Work Phone: Start: 05-26-2023 End: 06-05-2023 Exposure to SARS-CoV-2 (event) Not sure [facility] History of Present illness Narrative 06-05-2023 [...] Rfl: Assessment/Plan 1. 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 S/P CABG [...] discussion and plan. documented in this encounter [facility] Work Phone: Instructions 06-05-2023 Patient Instructions [...] of your visit. documented in this encounter [facility] Work Phone: Chief complaint Narrative - Reported Note Date & Type Note Facility Chief complaint Narrative - Reported ANTONETTE LINO is being seen for an initial evaluation of. 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 She is an individual who over the years knew that she had some aortic valve disease but it got worse while she was living in [place] taking care of her mother. Because of [...] were the merits of modest weight loss. [facility] [employer] Work Phone: History of Present illness Narrative [...] consequence we applauded her efforts at fitness. 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 pectoris Paroxysmal atrial fibrillation (CMS/HCC) Procedures Follow Up In Cardiology Maverick Espinosa MD [address] [facility] [address], [address] [address] Brea Bacon, BIOFUELS PRODUCTION MANAGER-DIRECTOR DENTAL SERVICES [address] [facility] [address] [place] [address] Referral ID Status Reason Start Date Expiration Date V isits Requested Visits Authorized [id number] Authorized 06/05/2023 06/04/2024 1 1 [facility] Work Phone: Family History No Family [...] section and content) DATE CREATED AUTHOR 09/30/2022 [facility] DATE CREATED AUTHOR AUTHOR'S ORGANIZ ATION 09/30/2022 [place] [facility] DATE CREATED AUTHOR AUTHOR'S ORGANIZ ATION 06/05/2023 [facility] DATE CREATED AUTHOR AUTHOR'S ORGANIZ ATION 08/24/2023 [facility] EPIC Reason for Visit (unrecogniz ed section and content) Reason Comments Follow-up 9m Care Teams (unrecognized sec tion and content) Slide Forming Machine Tender Relationship Specialty Start Date End Date Jeet Pretty MD [address] [facility] [address] [place] [address] PCP - General 09/29/22 FOR RECORDS PERTAINING [...] BE BASED ON THE PRIMARY CLINICAL RECORDS. [facility] [facility]. provides no warranty or guarantee of the accuracy or completeness of information in this document.
== END 2023-10-19 08:00 | disposition home or self-care (01) ==
LOC: PST 07:59
PROVIDERS: PCP Internal Medicine; Visit Provider Ophthalmology
DX: Z01.818 Encounter for other preprocedural examination (principal); H25.811 Combined forms of age-related cataract, right eye